=== PATIENT | male | born 1980 | race African-American/Black ===

== ENCOUNTER 2017-12-19 19:14 | Emergency (ER) | payer OTHER ==
[~2017-12-19] VITALS: Ht 182.9 cm; Wt 106.6 kg
[2017-12-19 19:31] VITALS: BP 128/63
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
[2017-12-19 20:27] LABS: ALBUMIN 3.9 g/dL (3.4-5.0); DIRECT BILIRUBIN 0.1 mg/dL (0.0-0.2); TOTAL BILIRUBIN 0.4 mg/dL (0.2-1.0)
== END 2017-12-19 20:12 | disposition home or self-care (01) ==
LOC: ER 19:14
DX: Z77.21 Contact with and (suspected) exposure to potentially hazardous body fluids (principal)
CPT/HCPCS: 36415; 80076; 86703; 99284

== ENCOUNTER 2018-07-17 21:37 | Emergency (ER) | payer OTHER ==
[~2018-07-17] VITALS: Ht 182.9 cm; Wt 106.6 kg
[2018-07-17 21:40] VITALS: BP 141/87
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
[2018-07-17 23:28] LABS: BASO # 0.1 x10^3/uL (0.0-0.2); BASO % 1 % (0-3); EOS # 0.2 x10^3/uL (0.0-0.7); EOS % 3 % (0-3); HEMATOCRIT 42.8 % (39.0-53.0); HEMOGLOBIN 14.2 g/dL (13.0-17.5); LYMPH # 2.4 x10^3/uL (1.0-4.8); LYMPH % 37 % (24-48); MEAN CORPUSCULAR HEMOGLOBIN 28 pg (25-35); MEAN CORPUSCULAR HGB CONC 33 g/dL (31-37); MEAN CORPUSCULAR VOLUME 84 fL (79-100); MONO # 0.8 x10^3/uL (0.0-1.1); MONO % 12 % (0-9); NEUT # 3.1 x10^3uL (1.8-7.7); NEUT % 48 % (31-73); PLATELET COUNT 234 x10^3/uL (140-400); RED BLOOD COUNT 5.13 x10^6/uL (4.30-5.70); WHITE BLOOD COUNT 6.5 x10^3/uL (4.0-11.0)
[2018-07-17] MEDS: DIPHTH,PERTUSS(ACELL),TET TOX 0.5 ML DISP.SYRIN. VAX IM ONE (23:29)
[2018-07-17 23:45] LABS: ALBUMIN 3.7 g/dL (3.4-5.0); CALCIUM 8.9 mg/dL (8.5-10.1); CREATININE 1.2 mg/dL (0.7-1.3); DIRECT BILIRUBIN 0.1 mg/dL (0.0-0.2); GFR 82.4; POTASSIUM 3.5 mmol/L (3.5-5.1); TOTAL BILIRUBIN 0.5 mg/dL (0.2-1.0); TOTAL PROTEIN 7.6 g/dL (6.4-8.2)
== END 2018-07-18 00:05 | disposition home or self-care (01) ==
LOC: ER 21:37
DX: Z77.22 Contact with and (suspected) exposure to environmental tobacco smoke (acute) (chronic) (principal)
CPT/HCPCS: 36415; 80048; 80076; 85025; 86592; 86703; 86705; 86709; 86803; 87340; 90471; 90715; 99283-25

== ENCOUNTER → 2020-09-08 | Outpatient (CLI) | payer OTHER ==
--- NOTE | 2020-09-08 18:18 | RAD ---
Exam: Right elbow 3 views INDICATION: Right elbow pain TECHNIQUE: Frontal, lateral and oblique views of the right elbow Comparisons: None FINDINGS: Bone mineralization is normal. No acute or healed fractures. Soft tissues are unremarkable. Joint spa jazmine are well-maintained. IMPRESSION: No acute osseous abnormality. Electronically signed by: Angeles De La Rosa MD (09/08/2020 6:15 PM) ARCHIE
== END ==
LOC: PMG 17:16
PROVIDERS: ATTEND Nurse Practitioner Family
DX: M25.521 Pain in right elbow (principal)
CPT/HCPCS: 73080

== ENCOUNTER 2021-07-09 17:36 | Emergency (ER) | payer OTHER ==
[~2021-07-09] VITALS: Ht 182.9 cm; Wt 116.2 kg
[2021-07-09 17:47] VITALS: BP 132/79
--- NOTE | 2021-07-09 18:31 | RAD ---
4 view right knee dated 07/09/2021. COMPARISON: None. Clinical data indication: Pain after injury. FINDINGS: 4 views of the right knee show normal bony alignment. No displaced fracture. No periostitis or bone d estruction. No apparent joint effusion or loose body. IMPRESSION: No acute findings. Electronically signed by: Richar Kim MD (07/09/2021 6:29 PM) XAVIER
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
== END 2021-07-09 19:14 | disposition home or self-care (01) ==
LOC: ER 17:36
DX: M25.561 Pain in right knee (principal)
CPT/HCPCS: 73564; 99283

== ENCOUNTER → 2021-09-09 | Outpatient (CLI) | payer BC ==
--- NOTE | 2021-09-09 14:03 | RAD ---
3 views of right thumb dated 09/09/2021 COMPARISON: None INDICATION: Pain after injury. FINDINGS: 3 views the right thumb show normal bony alignment. No displaced fracture. No periostitis or bone soy truction. No acute osseous or articular abnormality. IMPRESSION: No acute findings. Electronically signed by: Richar Kim MD (09/09/2021 2:00 PM) XAVIER
== END ==
LOC: RAD 12:59
PROVIDERS: ATTEND Physician Assistant Medical
DX: S69.91XA Unspecified injury of right wrist, hand and finger(s), initial encounter (principal); X58.XXXA Exposure to other specified factors, initial encounter; Y93.89 Activity, other specified; Y92.89 Other specified places as the place of occurrence of the external cause; Y99.8 Other external cause status
CPT/HCPCS: 73140